=== PATIENT | female | born 1955 | race Caucasian/White ===

== ENCOUNTER → 2024-08-05 09:41 | Outpatient (CLI) | payer MEDICARE, SELFPAY ==
--- NOTE | 2024-08-05 15:24 | ST.SWALLOW ---
Visit Care Team Role Provider Type NICOLE Leon Attending Provider Non-Staff Primary Care Provider Referring Provider Specialty: [facility] [address], [place], [address] Email: Modified Barium Swallow Study NUCLEAR MEDICINE TECHNICIAN Modified Barium Swallow Study Start: 08/05/24 14:12 Freq: Status: Active Protocol: Document 08/05/24 14:13 LNK (Rec: 08/05/24 15:24 LNK Desktop) Modified Barium Swallow Study Total Time Visit Start Time 11:00 Visit Stop Time 11:45 Total Visit Minutes 45 Referral Referring Physician GREGG Leon Reason for Referral dysphagia Setting Setting Outpatient Care Patient Information Identification Type Name,Date of Patient History Pt was seen for a Modified Barium Swallow Study with c/o difficulty swallowing. She stated she has had needed the Heimlich maneuver in the past. Pt described dry chicken, and big pills to be the most difficult to swallow, resulting in a globus sensation near her sternal notch and at mid sternum. Pt stated she has a history of eating quicky, not always chewing as well as she should. She noted she will sometimes cough with liquids. She does crush big pills. 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 Subjective Observations Pt was seated in the fluoroscopy chair with directions and procedures described for her. She indicated she understood and agreed to proceed. Patient Positioning Position View Lat-A/P Imaging Lateral View Textures Administered Trials Presented Thin Liquid via Spoon (IDDSI 0 ),Thin Liquid via Cup (IDDSI 0 ),Extremely Thick Liquid via Spoon (IDDSI 4),Easy to Chew ( IDDSI 7) Barium Tablet Yes The IDDSI Framework Protocol: IDDSI.1 Oral Impairment Source: The Modified Barium Swallow Impairment Profile (MBSImP??) Lip Closure No labial escape Tongue Control During Bolus Hold Cohesive bolus between tongue to palatal seal Bolus Preparation/Mastication Timely & efficient chewing & mashing Bolus Transport/Lingual Motion Brisk tongue motion Oral Residue Trace residue lining oral structures Location Tongue Initiation of Pharyngeal Swallow Bolus head at pyriforms Additional Oral Impairment Observations Oral phase of swallow observed to be WNL *OME and DKS were observed to be WNL. *Dentition natural and in good hygiene *Mastication observed with rotary chew pattern. *Good bolus formation, control and AP transition. *Velopharyngeal closure was WNL. Pharyngeal Impairment Source: The Modified Barium Swallow Impairment Profile (MBSImP??) Soft Palate Elevation No bolus between soft palate & pharyngeal wall Laryngeal Elevation Part.sup.move.thyroid cart/ part.approx.arytenoids to epiglot.petiole Anterior Hyoid Excursion No anterior movement Epiglottic Movement Complete inversion Laryngeal Vestibular Closure Complete; no air/contrast in laryngeal vestibule Pharyngeal Stripping Wave Present - complete Pharyngoesophageal Segment Opening Complete distention & complete duration; no obstruction of flow Tongue Base Retraction Trace column of contrast/air betwn tongue base & post. pharyngeal wall Pharyngeal Residue Complete pharyngeal clearance Additional Pharyngeal Impairment Pharyngeal phase of swallow Observations observed to be WNL *Osteophytes noted on cervical spine (C4-C5, C5-C6, C6-C7) that alter and narrow the upper esophagus. *Bolus flow was not impeded *Tongue base retraction strength, hyolaryngeal elevation and epiglottic inversion were judged to be adequate. *Pharyngeal stripping wave and cricopharyngeal opening appeared adequate and did not appear to impede bolus flow. A/P View Textures Administered Trials Presented Thin Liquid via Cup (IDDSI 0) The IDDSI Framework Protocol: IDDSI.1 A/P View Observations Pharyngeal Contraction Complete Esophageal Clearance Upright Position Complete clearance; esophageal coating Vocal Fold Function Good Esophageal Function WFL Clinical Impressions Dysphagia Type WNL Findings Pt's swallow was observed to be WNL for oral, pharyngeal and esophageal phases. Pt was encouraged to eat slowly, chew foods well, and be mindful of swallowing, reducing distractions. The results and recommendations of the MBSS were described to the pt while observing still pictures taken during the MBSS. Pt expressed appreciation and indicated she understood. All pt questions were addressed. Patient Appropriate for Therapy No Recommendations
== END ==
PROVIDERS: PCP Registered Nurse; Referring Provider Registered Nurse; Visit Provider Registered Nurse
DX: T17.320A Food in larynx causing asphyxiation, initial encounter (principal); W44.F3XA Food entering into or through a natural orifice, initial encounter; M54.50 Low back pain, unspecified; M99.03 Segmental and somatic dysfunction of lumbar region
CPT/HCPCS: 74230; 92611

== ENCOUNTER 2025-01-27 12:40 | Day surgery (SDC) | payer MEDICARE, SELFPAY ==
--- NOTE | 2025-01-27 | PATH_ITS ---
[facility] Accession Number: [id number] No. of containers..02 Tissue . 01 Material submitted: . PART A: stomach - ANTRAL PART B: stomach - GASTRIC POLYP . 01 Diagnosis: A. STOMACH, ANTRUM, BIOPSY: Antral mucosa with mild chronic inflammation, focal mild active inflammation, and minute focus of intestinal metaplasia, present in one of two biopsy fragments, see comment. Negative for Helicobacter organisms by IHC stain. Negative for dysplasia and malignancy. . B. GASTRIC POLYP, BIOPSY: Fundic gland polyp. Negative for Helicobacter organisms by H/E stain. Negative for intestinal metaplasia, dysplasia, and malignancy. [facility] 02/09/2025 1111 Local . 01 Comment: Immunohistochemistry for Helicobacter organisms is performed with adequate controls on block A1, and is negative. An alcian blue stain is also performed with appropriate controls on block A1 and is positive for a minute focus of intestinal metaplasia. . * This test was developed and the performance characteristics were validated by [facility]. It has not been cleared or approved by the U.S. Food and Drug Administration. . 01 Electronically signed: . Rica Chappell DO, Pathologist NPI- [id number] . 01 Gross description: . A. Received in formalin, labeled with two patient identifiers and antral biopsy. The specimen consists of two russell-white soft tissue fragments measuring 0.5 x 0.2 x 0.2 cm and 0.3 x 0.2 x 0.2 cm. The specimen is entirely submitted in cassette A1. B. Received in formalin, labeled with two patient identifiers and gastric polyp. The specimen consists of one russell-brown polypoid soft tissue fragment measuring 0.4 x 0.4 x 0.3 cm. The specimen is entirely submitted in cassette B1. ([id number]) /R 02/02/2025 1408 Local . 01 Pathologist provided ICD-10: R13.10 . 01 CPT . 203723, 908323, [id number], [id number] Specimen Comment: A courtesy copy of this report has been sent to [facility] Performed at: [address] [address], [place], [place] [id number] MD Gael Chinchilla MD Phone: [phone]
--- NOTE | 2025-01-27 06:21 | PM.HP.IH.1 ---
History of Present Illness History of Present Illness Date Patient Seen: 01/27/25 Time Patient Seen: 06:22 Chief complaint: EGD w/poss bx Narrative: Patient presents for EGD this morning to evaluate dysphagia. [facility] Social History (Updated 12/01/24 @ 14:46 by Michael Garcia MA) lives independently: Yes occupational status: previously employed Meds Home Medications and Allergies Home Medications ?Medication ?Instructions ?Recorded ?Confirmed ?Type bupropion HCl 100 mg tablet,12 hr 100 mg PO BID 12/01/24 12/01/24 History sustained-release levothyroxine 75 mcg tablet 75 mcg PO DAILY 12/01/24 12/01/24 History liothyronine 5 mcg tablet mcg PO 12/01/24 12/01/24 History testosterone 1.62 % (20.25 mg/1.25 transdermal 12/01/24 12/01/24 History gram) transdermal gel packet Allergies Allergy/AdvReac Type Severity Reaction Status Date / Time azithromycin (From Zithromax) Allergy Intermediate felt ill Verified 12/01/24 14:37 codeine Allergy Intermediate throw up Verified 12/01/24 14:37 Sulfa (Sulfonamide Allergy Intermediate Hives Verified 12/01/24 14:37 Antibiotics) covid 19 vaccine Allergy Intermediate lost Uncoded 12/01/24 14:37 vision of left eye Exam Narrative Exam Narrative: Const General: no acute distress Orientation: alert and oriented x3 Eyes Visual [place]: normal visual [place] by confrontation Conjunctivae: conjunctivae normal Sclera: sclerae normal EOM: EOM intact bilaterally Resp Effort & Inspection: normal respiratory effort and able to speak in complete sentences Cardio Rate: regular rate GI Palpation: soft (nontender) Extrem Other: Without pitting edema Assessment & Plan Assessment and plan (1) Dysphagia: Qualifiers: Dysphagia type: esophageal phase Qualified Code(s): R13.19 - Other dysphagia Status: Acute Plan EGD, possible biopsy, possible dilation. The risks, benefits and options regarding the procedure were explained to the patient in detail. Risk discussion included but not limited to: bleeding perforation, missed lesion. The patient was encouraged to ask questions and they were answered to their satisfaction. The patient understands and is agreeable to proceed. Time-Based Coding :: [TOTAL MINUTES] spent with patient and on the chart (including review of chart, obtaining history, exam, reviewing outside data, placing orders, documenting exam and treatment plan, and counseling patient) on [DATE]. [employer] Document charge(s): Yes Charge Codes Inpatient/observation care including admit and discharge same day: [id number]
[2025-01-27 13:16] VITALS: BP 134/78; PULSE 99; RESP 17; TEMP 36.8; O2SAT 100
[2025-01-27] MEDS: LACTATED RINGERS 1,000 ML 42 ML IV (13:25)
--- NOTE | 2025-01-27 13:53 | PM.OP.EGD ---
Operative Date/Time/Diagnoses Date of procedure: 01/27/25 Time of procedure: 14:11 Pre-op diagnosis: Dysphagia Post-op diagnosis: other (Small 2cm hiatal hernia, antral gastritis, gastric polyps (appearance of PPI effect)) Procedure & Clinicians Study performed: EGD with biopsy Same procedure(s) as scheduled: Yes Indications: 69yo F, dysphagia, globus Surgeon: Michael Chavarria Anesthesia Type: MAC +/- Procedure Notes SCOAP/Timeout: Performed Procedure in detail: EGD Informed consent was obtained. The procedure, its risks, benefits, and alternatives were discussed. Patient understood and agreed to proceed. The patient was placed in the left lateral decubitus position with head elevated. Sedation given per anesthesia. The video endoscope was inserted into the oropharynx and guided under direct vision into the esophagus, stomach, and duodenum which were carefully examined. The scope was retroflexed to examine the hiatus and gastroesophageal junction. Antral biopsies were obtained for Helicobacter pylori. The patient tolerated the procedure very well. There were no apparent complications. Significant EGD findings: Z-line noted at: 37cm Small 2cm hiatal hernia without esophagitis multiple gastric polyps <5mm, appearance of PPI effect, one polyp biopsied for representation Moderate antral gastritis, biopsied for H pylori No esophageal stricture or mass to explain dysphagia Duodenum normal Findings: gastritis, hiatal hernia and other findings (gastric polyps) Specimen(s): other (polyp and antral biopsies) Complications: none Impression: 2cm hiatal hernia without esophagitis Multiple gastric polyps, appearance of PPI effect, one polyp biopsied Moderate antral gastritis, biopsied for H pylori No esophageal finding to explain dysphagia symptom Post-procedure Recommendations: Will call with biopsy results Plan for aftercare: PACU then home Rx omeprazole Follow up: weeks Disposition: PACU
[2025-01-27 14:15] VITALS: BP 104/57; PULSE 79; RESP 15; TEMP 36.2; O2SAT 97
[2025-01-27 14:20] VITALS: BP 107/58; PULSE 90; RESP 15; TEMP 36.2; O2SAT 98
[2025-01-27 14:31] VITALS: BP 110/68; PULSE 93; RESP 20; TEMP 36.2; O2SAT 99
== END 2025-01-27 14:59 | disposition home or self-care (01) ==
PROVIDERS: PCP Registered Nurse; Referring Provider Surgery; Visit Provider Surgery
PROC: 0DJ08ZZ Inspection of Upper Intestinal Tract, Via Natural or Artificial Opening Endoscopic (ICD-10-PCS; CPT 43239; principal; 2025-01-27 14:30)
DX: R13.10 Dysphagia, unspecified (principal); K31.7 Polyp of stomach and duodenum; K44.9 Diaphragmatic hernia without obstruction or gangrene; K29.50 Unspecified chronic gastritis without bleeding; K31.A0 Gastric intestinal metaplasia, unspecified
CPT/HCPCS: 43239; J2405; J2704; J7120